=== PATIENT | male | born 1940 | race Caucasian/White ===

== ENCOUNTER 2020-01-15 12:15 | Emergency (ER) | payer MEDICARE, SELFPAY ==
[2020-01-15 12:25] VITALS: BP 156/68; PULSE 97; RESP 20; TEMP 36.6; O2SAT 98
--- NOTE | 2020-01-15 12:27 | ED.GENADULT ---
HPI - General Adult General Chief complaint: Extremity Injury, Upper Stated complaint: left index finger Time Seen by Provider: 01/15/20 12:33 Source: patient and RN notes reviewed Mode of arrival: ambulatory Limitations: no limitations History of Present Illness HPI narrative: 79-year-old male presents with concern for swelling, pain to the second digit of his left hand. Reports 5 days ago he hit his hand causing a fluid-filled blister. Reports he popped the blister and expressed fluid. Reports he has been using aspirin for pain with no relief. Reports pain and swelling is worsened. MD complaint: Swollen finger Related Data Home Medications Medication Instructions Recorded Confirmed aspirin 81 mg PO DAILY 01/15/20 01/15/20 docusate sodium 100 mg PO BID 01/15/20 01/15/20 hydrocortisone acetate [Anusol-HC] 25 mg KS BID 01/15/20 01/15/20 indomethacin 50 mg PO BID 01/15/20 01/15/20 lisinopril 10 mg PO DAILY 01/15/20 01/15/20 metformin 1,500 mg PO BID 01/15/20 01/15/20 [id number]-aht-vgrz-FA-vit K 1 tablet PO DAILY 01/15/20 01/15/20 [Adults Multivitamin] probenecid 250 mg PO BID 01/15/20 01/15/20 Allergies Allergy/AdvReac Type Severity Reaction Status Date / Time No Known Allergies Allergy Verified 01/15/20 12:39 Review of Systems Review of Systems: Narrative: CONSTITUTIONAL: Denies malaise, chills, sweats, or fever. CARDIOVASCULAR: Denies chest pain, palpitations, or edema. RESPIRATORY: Denies dyspnea. GASTROINTESTINAL: Denies abdominal pain, nausea, vomiting, diarrhea SKIN: Reports blister on the second digit of the left hand, redness, pain, swelling to the second digit MUSCULOSKELETAL: Denies myalgia. NEUROLOGIC: Denies numbness, weakness, or headache. All systems reviewed & are unremarkable except as noted in HPI and below PMFSH Comments At time of signature, agree with nursing past medical, surgical, social and family history. There is no relevant family history pertinent to the presenting complaint Exam Narrative: Exam Narrative: GENERAL: Well-appearing, well-nourished, and in no acute distress. HEAD: Normocephalic, atraumatic. EYES: PERRLA, conjunctivae clear NECK: Supple. CHEST: Speaks in full sentences. No respiratory distress. HEART: Regular rate and rhythm. Normal and equal peripheral pulses. EXTREMITIES: Left hand and digits of hand have normal strength and sensation. 5/5 strength with digit flexion, extension. Range of motion normal. No clubbing, cyanosis, or edema noted. No tenderness. Normal digital cascade with flexion of fingers, median, ulnar and radial nerve intact. Normal sensation of each side of finger. Can perform 'okay' sign, 'cross over finger test of index and middle fingers' and 'thumbs up' sign. No scissoring. Normal thumb opposition. Good capillary refill and radial pulse. Distal capillary refill <3 seconds. SKIN: Warm, dry, no rash. Intact fluid-filled blister to the lateral aspect of the second edge of left hand. Second digit is erythematous, indurated, tender, without fingernail involvement. Dorsal aspect of the left hand beneath digits 3 and 4 is erythematous, tender with streaking up the forearm. NEURO: Alert and oriented x3. PSYCH: Normal mood and affect Course Course Emergency Course: Discussed with patient cellulitis, streaking up the arm. Patient's vital signs are currently stable. Patient's blood glucose is stable. Discussed patient's care with daughter over the phone. Daughter is going to come worm picker her father and monitor his condition. Patient is stable at this time for discharge home. Daughter understands reasons to go the emergency room Patient is aware of diagnosis, understands and agrees to treatment plan. Anticipatory guidance given. Patient agrees to follow-up as directed and is aware of reasons to seek care at the emergency department. Portions of this record may have been created with voice recognition software Vital Signs Vital signs: Vital Signs Te
[2020-01-15 13:00] LABS: Glucose Point of Care 267 (65-105)
== END 2020-01-15 13:10 | disposition home or self-care (01) ==
PROVIDERS: Emergency Provider Nurse Practitioner; PCP Internal Medicine
DX: L03.012 Cellulitis of left finger (principal); I10 Essential (primary) hypertension; M10.9 Gout, unspecified; E11.9 Type 2 diabetes mellitus without complications; Z79.84 Long term (current) use of oral hypoglycemic drugs; Z79.82 Long term (current) use of aspirin
CPT/HCPCS: 82948; 99213; G0463